=== PATIENT | male | born 1975 | race Two or more races ===

== ENCOUNTER 2020-05-18 20:51 | Emergency (ER) | payer MEDICARE, OTHER ==
[~2020-05-18] VITALS: Ht 170.2 cm; Wt 117.8 kg
[~2020-05-18 20:51] MED LIST: AMLO10TA8 PO; HYDR50TA3 PO
--- NOTE | 2020-05-18 23:32 | NUR ---
PT AMB TO ROOM FROM LOBBY AT THIS TIME
[2020-05-18 23:37] LABS: BASOPHILS # (AUTO) 0.08 x10^3/uL (0-0.1); BASOPHILS % (AUTO) 1 % (0-1); EOSINOPHILS # (AUTO) 0.34 x10^3/uL (0-0.4); EOSINOPHILS % (AUTO) 3 % (1-7); LYMPHOCYTES # (AUTO) 2.79 x10^3/uL (1-3.4); LYMPHOCYTES % (AUTO) 21 % (22-44); MD NO; MEAN CORPUSCULAR HEMOGLOBIN 31.8 pg (27.5-34.5); MEAN CORPUSCULAR HGB CONC 32.9 g/dL (33.2-36.2); MEAN CORPUSCULAR VOLUME 96.7 fL (81-97); MEAN PLATELET VOLUME 10.6 fL (7.4-10.4); MONOCYTES # (AUTO) 0.97 x10^3/uL (0.2-0.8); MONOCYTES % (AUTO) 7 % (2-9); NEUTROPHILS % (AUTO) 69 % (42-75); PLATELET COUNT 168 x10^3/uL (130-400); RED BLOOD COUNT 5.37 x10^6/uL (4.38-5.82)
[2020-05-19 00:02] LABS: ALBUMIN 3.9 g/dL (3.4-5.0); ANION GAP 6 mmol/L (5-15); CALCIUM 9.3 mg/dL (8.5-10.1); CHLORIDE 110 mmol/L (98-107)
[2020-05-19 00:04] LABS: ALANINE AMINOTRANSFERASE 51 U/L (12-78); ALKALINE PHOSPHATASE 83 U/L (45-117); BILIRUBIN,TOTAL 0.8 mg/dL (0.2-1.0); CREATININE 0.92 mg/dL (0.7-1.3); TOTAL PROTEIN 7.4 g/dL (6.4-8.2)
[2020-05-19] MEDS ORDERED: PROCHLORPERAZINE 5 MG/ML, 2ML ONE (00:11)
[2020-05-19] MEDS ORDERED: MORPHINE SULFATE 4 MG/ML, 1ML ONE (00:11)
--- NOTE | 2020-05-19 00:20 | NUR ---
PIV STARTED, PT MEDICATED PER MAR TOLERATED WELL NADN, VSS AT BEDSIDE
--- NOTE | 2020-05-19 00:26 | NUR ---
pt to xray then ct via kiki
[2020-05-19] MEDS ORDERED: PROCHLORPERAZINE 5 MG/ML, 2ML IVPush ONE (00:30)
[2020-05-19] MEDS ORDERED: SODIUM CHLORIDE FLUSH 10ML SYR IVF ONE (00:30)
[2020-05-19] MEDS ORDERED: MORPHINE SULFATE 4 MG/ML, 1ML IVPush PRN (00:30)
--- NOTE | 2020-05-19 01:03 | NUR ---
PT BACK FROM IMAGING AT THIS TIME
[2020-05-19 01:25] VITALS: BP 123/70
--- NOTE | 2020-05-19 01:39 | NUR ---
PT REPORTS IMPROVEMENT IN PAIN, DOES NOT WANT 2ND DOSE AT THIS TIME. PT PROVIDED WATER REQ, REMAINS AT BEDSIDE
[2020-05-19] MEDS ORDERED: LIDOCAINE-MPF 1%, 5ML ONE (03:00)
[2020-05-19] MEDS ORDERED: LIDOCAINE-MPF 1%, 5ML INFIL ONE (03:00)
--- NOTE | 2020-05-19 03:10 | NUR ---
LP SET UP PER DR LAGUNAS
--- NOTE | 2020-05-19 03:35 | NUR ---
URINE WALKED TO LAB
[2020-05-19 04:17] LABS: GLUCOSE, CSF 62 mg/dL (40-80); TOTAL PROTEIN,CSF 57 mg/dL (15-45)
--- NOTE | 2020-05-19 04:22 | NUR ---
LAB CALLED TO FOLLOW UP ON URINE SAMPLE IT IS NOT PENDING AT THIS TIME
[2020-05-19 04:44] LABS: MICROSCOPIC NOT IND
[2020-05-19] MEDS ORDERED: OMNIPAQUE 350 MG/ML, 100ML BOTTLE ONE (05:45)
--- NOTE | 2020-05-19 05:46 | NUR ---
Patient/Caregiver given discharge instructions and they have confirmed that they understand the instructions. Patient ambulatory with steady gait. PIV DC PRIOR TO PT LEAVING
== END 2020-05-19 05:47 | disposition home or self-care (01) ==
LOC: ED 05-19 01:09
DX: G44.89 Other headache syndrome (principal); R11.2 Nausea with vomiting, unspecified; M54.2 Cervicalgia; I10 Essential (primary) hypertension; R10.84 Generalized abdominal pain; K59.00 Constipation, unspecified; R94.31 Abnormal electrocardiogram [ECG] [EKG]
CPT/HCPCS: 36415; 62270; 70450; 70496; 70498; 74022; 80053; 81003; 82945; 83690; 84157; 85025; 87070; 87205; 87252; 89051; 93005; 96374; 96375; 99285; J0780; J2270; Q9967

== ENCOUNTER 2021-05-11 00:05 | Emergency (ER) | payer MEDICARE ==
[~2021-05-11] VITALS: Ht 170.2 cm; Wt 111.5 kg
[~2021-05-11 00:05] MED LIST changes: +AMLO-211 PO; -AMLO10TA8 PO; -HYDR50TA3 PO; +HYDR50TA6 PO
[2021-05-11] MEDS ORDERED: BACITRACIN ZINC OINT 500U/GM, 0.9 GM ONE (00:15)
[2021-05-11] MEDS ORDERED: HYDROcodone/APAP 5/325 TABLET ONE (00:19)
[2021-05-11] MEDS ORDERED: HYDROcodone/APAP 5/325 TABLET PO ONE (00:30)
== END 2021-05-11 00:37 ==
LOC: ED 00:20
DX: T25.221A Burn of second degree of right foot, initial encounter (principal); T31.0 Burns involving less than 10% of body surface; I10 Essential (primary) hypertension; X08.8XXA Exposure to other specified smoke, fire and flames, initial encounter; Y93.89 Activity, other specified; Y92.89 Other specified places as the place of occurrence of the external cause; Y99.8 Other external cause status
CPT/HCPCS: 16020; 99283